=== PATIENT | female | born 1975 | race Caucasian/White ===

== ENCOUNTER 2016-06-16 20:34 | Emergency (ER) | payer MEDICARE | END 2016-06-16 21:32 | disposition home or self-care (01) | LOC: ER 20:34 | DX: M53.3 Sacrococcygeal disorders, not elsewhere classified (principal); F17.210 Nicotine dependence, cigarettes, uncomplicated; Z88.5 Allergy status to narcotic agent; Z88.6 Allergy status to analgesic agent | CPT/HCPCS: 96372; J1885 ==

== ENCOUNTER 2016-07-02 22:46 | Emergency (ER) | payer MEDICARE | END 2016-07-02 23:43 | disposition home or self-care (01) | LOC: ER 22:46 | DX: G43.909 Migraine, unspecified, not intractable, without status migrainosus (principal); R11.0 Nausea; F17.210 Nicotine dependence, cigarettes, uncomplicated; Z88.5 Allergy status to narcotic agent; Z88.8 Allergy status to other drugs, medicaments and biological substances | CPT/HCPCS: J1200; J1885; J2765 ==